=== PATIENT | female | born 1930 | race Caucasian/White ===

== ENCOUNTER → 2018-03-11 | Outpatient (CLI) | payer MEDICARE ==
[~2018-03-11] MED LIST: AC325T PO; ASCO500T20 PO; ASP81CT; ASP81TEC PO; ATN25T PO; C250T; CATHETER FLUSH 10 ML SYR IV PRN; CHOL10002 PO; CHOL400C8 PO; CITA20TA4 PO; CLC600T PO; CLCX200C PO; CLPD75T PO; CRAN200C PO; CTLP20T PO; ESCT10T PO; FLAX OIL PO; LOVA10TA PO; MELO-198 PO; MULT-930 PO; MULT1TAB63; OMEG1CAP51 PO; OXYC-12 PO; PRILOSEC OTC PO; PRM25T PO; REGADENOSON 0.4 MG/5 ML SYR (LEXISCAN) IV ONE; ROSU10TA12 PO; SENN1TAB76 PO; SULINDAC 200 MG; TRAM50TA2 PO; TRM50T PO
[2018-03-11 08:55] VITALS: BP 138/80
[2018-03-11 09:23] VITALS: BP 134/72
--- NOTE | 2018-03-11 17:50 | STRESS TEST ---
DATE OF SERVICE: 03/11/2018 PROCEDURE PERFORMED: Resting and post regadenoson technetium-99m Tetrofosmin SPECT CT imaging. ORDERING PHYSICIAN: Talat Lawton MD, RON, FACP, FACC. PRIMARY PHYSICIAN: Za Gordon MD. CLINICAL DIAGNOSES: Shortness of breath, coronary artery disease. DESCRIPTION OF PROCEDURE: Baseline images were carried out after injection of 10.49 mCi of technetium-99m Tetrofosmin. This was followed by 0.4 mg regadenoson and 30.9 mCi of technetium-99m Tetrofosmin for stress imaging. The electrocardiogram showed sinus rhythm with sinus arrhythmia and isolated and coupled premature ventricular contractions. The patient noted some headache and chest tightness following regadenoson infusion, which resolved in a few minutes. Review of images at rest and following stress, does not indicate any significant perfusion defects consistent with any significant myocardial ischemia or infarction. Gated images showed normal global left ventricular systolic function with normal regional wall motion. Left ventricular ejection fraction is calculated to be 77%. Left ventricular end diastolic volume is 40 mL. TID is absent (0.98). CONCLUSIONS: 1. No evidence of any significant myocardial ischemia or infarction on this study. 2. Normal regional wall motion. 3. Normal global left ventricular systolic function with a calculated ejection fraction of 77%. Job ID: [id number] DocumentID: [id number] Dictated Date: 03/11/2018 17:06:41 Rn Triage Date: 03/11/2018 17:49:45 Dictated By: TALAT LAWTON MD, RON, FACP, FACC,
== END ==
LOC: CARD 07:12
PROVIDERS: ATTEND Internal Medicine Cardiovascular Disease
DX: I25.10 Atherosclerotic heart disease of native coronary artery without angina pectoris (principal); E78.5 Hyperlipidemia, unspecified; I10 Essential (primary) hypertension; I34.1 Nonrheumatic mitral (valve) prolapse; I65.29 Occlusion and stenosis of unspecified carotid artery; E66.8 Other obesity; R06.02 Shortness of breath
CPT/HCPCS: 78452; 93017

== ENCOUNTER 2018-04-14 08:13 | Outpatient (RCR) | payer MEDICARE ==
[~2018-04-14 08:13] MED LIST changes: -CATHETER FLUSH 10 ML SYR IV PRN; -REGADENOSON 0.4 MG/5 ML SYR (LEXISCAN) IV ONE
== END 2018-07-13 | disposition home or self-care (01) ==
LOC: PULM 08:13
PROVIDERS: ATTEND Nurse Practitioner Family
DX: R06.02 Shortness of breath (principal)
CPT/HCPCS: 99211